=== PATIENT | female | born 1985 | race Caucasian/White ===

== ENCOUNTER 2017-10-17 15:23 | Emergency (ER) | payer OTHER ==
[~2017-10-17] VITALS: Ht 157.5 cm; Wt 55.3 kg
[2017-10-17 15:33] VITALS: Ht 157.5 cm; Wt 55.3 kg
[2017-10-17 19:51] VITALS: BP 120/64
== END 2017-10-17 19:51 | disposition home or self-care (01) ==
LOC: ED 15:23
DX: S20.212A Contusion of left front wall of thorax, initial encounter (principal); S40.022A Contusion of left upper arm, initial encounter; V49.49XA Driver injured in collision with other motor vehicles in traffic accident, initial encounter; Y99.8 Other external cause status; Y93.89 Activity, other specified; Y92.89 Other specified places as the place of occurrence of the external cause

== ENCOUNTER 2018-11-15 12:09 | Emergency (ER) | payer OTHER ==
[~2018-11-15] VITALS: Ht 157.5 cm; Wt 56.9 kg
[2018-11-15 12:16] VITALS: BP 120/72; Ht 157.5 cm; Wt 56.9 kg
== END 2018-11-15 13:17 | disposition home or self-care (01) ==
LOC: ED 12:09
DX: H61.21 Impacted cerumen, right ear (principal)

== ENCOUNTER 2019-07-26 21:26 | Emergency (ER) | payer OTHER ==
[~2019-07-26] VITALS: Ht 157.5 cm; Wt 57.2 kg
[2019-07-26 21:42] VITALS: BP 132/84; Ht 157.5 cm; Wt 57.2 kg
== END 2019-07-26 23:15 | disposition home or self-care (01) ==
LOC: ED 21:26
DX: H10.89 Other conjunctivitis (principal)